=== PATIENT | male | born 1940 | race African-American/Black ===

== ENCOUNTER 2016-12-09 19:39 | Emergency (ER) | payer MEDICARE, OTHER ==
[~2016-12-09] VITALS: Ht 185.4 cm; Wt 100.0 kg
[~2016-12-09 19:39] MED LIST: LISI10TA5 PO; TAMS0.4C31 PO
[2016-12-09] MEDS ORDERED: SODIUM CHLORIDE 0.9% 1,000 ML IV ONE (20:57)
[2016-12-09] MEDS ORDERED: THIAMINE HCL 100 MG/1 ML 2ML VIAL IV ONE (21:00)
[2016-12-09] MEDS ORDERED: FOLIC ACID 1 MG, THIAMINE HCL 100 MG, MVI, ADULT NO.1 10 ML in DEXTROSE 5% WATER 1,000 ML IV ONE ×4 (21:00)
[2016-12-09] MEDS ORDERED: THIAMINE HCL 100 MG/1 ML 2ML VIAL ONE (21:14)
[2016-12-09] MEDS ORDERED: LORAZEPAM 2MG/ML CPJ IV ONE (21:30)
[2016-12-09 21:55] LABS: *AMPHETAMINES SCREEN URINE NEGATIVE (NEGATIVE); *BARBITURATES SCREEN URINE NEGATIVE (NEGATIVE); *BENZODIAZEPINES SCREEN URINE NEGATIVE (NEGATIVE); *COCAINE SCREEN URINE NEGATIVE (NEGATIVE); CANNABINOID URINE SCREEN PRESUMTIVE POSITIVE (NEGATIVE); METHADONE URINE SCREEN NEGATIVE (NEGATIVE); OPIATES URINE SCREEN NEGATIVE (NEGATIVE); PHENCYCLIDINE URINE SCREEN NEGATIVE (NEGATIVE)
[2016-12-09 22:47] LABS: BASOPHILS % 0.7 % (0.0-2.0); HEMATOCRIT. 44.1 % (42.0-52.0); HEMOGLOBIN. 14.5 g/dL (14.0-18.0); LYMPHOCYTES % 26.4 % (20.0-50.0); MEAN CORPUSCULAR HEMOGLOBIN 30.3 pg (28.0-32.0); MEAN PLATELET VOLUME 8.2 fl (7.4-10.4); MONOCYTES % 8.2 % (2.0-8.0); NEUTROPHILS % 63.7 % (40.0-76.0); PLATELET 235 x1000/uL (130-400); RED BLOOD CELL COUNT 4.79 mill/uL (4.7-6.1); RED CELL DISTRIBUTION WIDTH 15.7 % (11.6-14.6)
[2016-12-09 22:49] LABS: INR 1.1; PARTIAL THROMBOPLASTIN TIME 27.3 sec (24.0-34.0); PROTHROMBIN TIME 11.4 sec
[2016-12-09 23:08] LABS: AMMONIA 14 uMol/L (<32)
[2016-12-10] MEDS ORDERED: LORAZEPAM 2MG/ML CPJ IV ONE (00:15)
[2016-12-10] MEDS ORDERED: LABETALOL HCL 20MG/4ML CARPUJECT IV ONE (00:15)
[2016-12-10 00:27] LABS: CHLORIDE 109 mEq/L (98-107)
[2016-12-10 00:28] LABS: CARBON DIOXIDE 19 mEq/L (21-32); ETHANOL BLOOD 174 mg/dL
[2016-12-10] MEDS ORDERED: LABETALOL 5MG/ML SYR 20 MG/4 ML SYRINGE IV NR (00:45)
[2016-12-10] MEDS ORDERED: LORAZEPAM 2MG/ML CPJ IM ONE (06:45)
[2016-12-10 09:45] VITALS: BP 131/61
== END 2016-12-10 11:34 | disposition home or self-care (01) ==
LOC: ER 20:09
DX: S09.90XA Unspecified injury of head, initial encounter (principal); F10.229 Alcohol dependence with intoxication, unspecified; I16.0 Hypertensive urgency; R41.0 Disorientation, unspecified; Y90.6 Blood alcohol level of 120-199 mg/100 ml; X58.XXXA Exposure to other specified factors, initial encounter; Y93.89 Activity, other specified; Y92.89 Other specified places as the place of occurrence of the external cause; Y99.8 Other external cause status
CPT/HCPCS: 36415; 71010; 80053; 80305; 80307; 80329; 82140; 85025; 85610; 85730; 93005; 96361; 96372; 96374; 96375; 96376; 99291; G0482; J2060; J3411; J3490; J7030; J7070; Z7610; A4315